=== PATIENT | male | born 1970 | race Caucasian/White ===

== ENCOUNTER 2020-06-01 09:16 | Day surgery (SDC) | payer BC ==
[~2020-06-01] VITALS: Ht 172.7 cm; Wt 104.0 kg
[2020-06-01 11:33] VITALS: BP 135/80
--- NOTE | 2020-06-01 11:40 | NUR ---
5F DUAL LUMEN PICC LINE PLACEMENT TO RIGHT BASILIC VEIN X'S 1 ATTEMPT WITH SUCCESS USING ULTRASOUND GUIDANCE. PLACED OUTPATIENT FOR HOME MEDICATION ADMINISTRATION. Rebecca LOCKHART PICC RN
== END 2020-06-01 11:30 | disposition home or self-care (01) ==
LOC: SSTAY O 09:16
PROVIDERS: ATTEND Emergency Medicine
DX: Z45.2 Encounter for adjustment and management of vascular access device (principal)
CPT/HCPCS: 36573

== ENCOUNTER 2023-02-05 08:41 | Outpatient (CLI) | payer BC | END 2023-02-05 23:59 | disposition home or self-care (01) | LOC: RAD 08:41 | PROVIDERS: ATTEND Emergency Medicine | DX: K76.0 Fatty (change of) liver, not elsewhere classified (principal); K80.20 Calculus of gallbladder without cholecystitis without obstruction; R10.11 Right upper quadrant pain | CPT/HCPCS: 76700 ==